=== PATIENT | male | born 1985 | race Caucasian/White ===

== ENCOUNTER 2021-06-02 15:58 | Emergency (ER) | payer OTHER, BC ==
[~2021-06-02 15:58] MED LIST: Iopamidol-370 76% 500 ML 1 ML ONE
[2021-06-02] MEDS ORDERED: Morphine 4 MG/ML VIAL ONE (17:08)
[2021-06-02] MEDS ORDERED: Ondansetron PF 4 MG/2 ML Vial ONE (17:08)
[2021-06-02] MEDS ORDERED: Lidocaine 1% w/Epinephrine 1:100K 20 ML VIAL ONE (17:10)
[2021-06-02] MEDS ORDERED: Fentanyl 100 MCG/2 ML VIAL ONE (17:19)
[2021-06-02] MEDS ORDERED: Bacitracin 1 PK ONE (18:39)
[2021-06-02] MEDS ORDERED: Boostrix 0.5 ML (Tdap) VIAL ONE (18:40)
== END 2021-06-02 18:55 | disposition home or self-care (01) ==
LOC: ERS 15:58
DX: S31.119A Laceration without foreign body of abdominal wall, unspecified quadrant without penetration into peritoneal cavity, initial encounter (principal); W55.22XA Struck by cow, initial encounter; E78.5 Hyperlipidemia, unspecified; Z79.899 Other long term (current) drug therapy
CPT/HCPCS: 12002; 74177; 90471; 90715; 96374; 96375; J2270; J2405; J3010; Q9967